=== PATIENT | female | born 1985 | race Caucasian/White ===

== ENCOUNTER 2019-08-05 18:41 | Emergency (ER) | payer MEDICAID ==
[~2019-08-05] VITALS: Ht 165.1 cm; Wt 108.9 kg
[2019-08-05 19:18] VITALS: BP_SYST 148
--- NOTE | 2019-08-05 19:22 | NUR ---
Patient triaged and placed in waiting room. VS checked and patient appears in no acute distress at this time. Accompanied by self , awaiting available bed, and MD notified of need for MSE.
--- NOTE | 2019-08-05 19:50 | NUR ---
Pt Brought in by self. Pt awake, alert, oriented x4. Pt states that she has had cough, congestion, and headache on and off for approx 4 months. Pt denies chest pain, shortness of breath, nausea, vomiting, diarrhea, any other medical complaint at this time. Pt resting in ED bed, comfortably. No acute distress. VSS
--- NOTE | 2019-08-05 19:50 | NUR ---
Patient to ER bed 3 to gown for evaluation. Side rails up.
--- NOTE | 2019-08-05 19:51 | NUR ---
ER CHAVA Lee at bedside examining patient.
[2019-08-05 20:07] VITALS: BP_SYST 148
--- NOTE | 2019-08-05 20:07 | NUR ---
Patient given written and verbal discharge instructions and verbalizes understanding. ER CORRECTION WARDEN discussed with patient the results and treatment provided. Patient in stable condition. ID armband removed. Rx of fluticasone, augmentin, motrin given. Patient educated on pain management and to follow up with PMD. Pain Scale 0/10. Opportunity for questions provided and answered. Medication side effect fact sheet provided.
== END 2019-08-05 20:07 | disposition home or self-care (01) ==
LOC: SED 18:41
DX: J32.9 Chronic sinusitis, unspecified (principal); R03.0 Elevated blood-pressure reading, without diagnosis of hypertension
CPT/HCPCS: 99283

== ENCOUNTER 2020-03-03 00:03 | Emergency (ER) | payer MEDICAID ==
[~2020-03-03] VITALS: Ht 165.1 cm; Wt 108.9 kg
[2020-03-03 00:05] VITALS: BP_SYST 156
--- NOTE | 2020-03-03 00:05 | NUR ---
Patient to ER bed 3 to gown for evaluation. Side rails up. Report given to GORDON.
--- NOTE | 2020-03-03 00:10 | NUR ---
DR. LANGFORD IN TRIAGE TO EVALUATE PT STATUS.
--- NOTE | 2020-03-03 00:15 | NUR ---
PT AAO AND AMBULATORY C/O ACUTE ONSET OF ANXIETY. PT REPORTS THAT A PANIC ATTACK WOKE HER FROM SLEEP. PT STATED THIS HAS HAPPENED IN THE PAST AND GIVEN MEDICATION TO CONTROL ANXIETY.
--- NOTE | 2020-03-03 00:17 | NUR ---
PORTABLE CXR DONE AT BEDSIDE
[2020-03-03] MEDS ORDERED: DIPHENHYDRAMINE INJ 50 MG/ML VIAL IM ONE (00:30)
[2020-03-03] MEDS ORDERED: DIPHENHYDRAMINE INJ 50 MG/ML VIAL ONE (00:42)
[2020-03-03 00:45] VITALS: BP_SYST 156
--- NOTE | 2020-03-03 00:50 | NUR ---
Patient given written and verbal discharge instructions and verbalizes understanding. DR. ANASTASIYA WHITE MD discussed with patient the results and treatment provided. Patient in stable condition. ID arm band removed. Rx of VISTARIL given. Patient educated on pain management and to follow up with PMD. Pain Scale 0/10. Opportunity for questions provided and answered. Medication side effect fact sheet provided.
== END 2020-03-03 00:45 | disposition home or self-care (01) ==
LOC: SED 00:03
DX: F41.0 Panic disorder [episodic paroxysmal anxiety] (principal)
CPT/HCPCS: 71045; 93005; 96372; 99283; J1200; J3410

== ENCOUNTER 2020-06-17 04:02 | Emergency (ER) | payer MEDICAID ==
[~2020-06-17] VITALS: Ht 167.6 cm; Wt 90.7 kg
[2020-06-17 04:10] VITALS: BP_SYST 110
--- NOTE | 2020-06-17 04:10 | NUR ---
Patient triaged and placed in waiting room. VSS and patient appears in no acute distress at this time. Accompanied by self, awaiting available bed, and MD notified of need for MSE.Report given to John GUZMAN
--- NOTE | 2020-06-17 04:12 | NUR ---
Pt BIBA to ED C/O R sided Chest Tightness radiating to her neck .pt states has Hx of anxiety, no other complaints noted. VSS no s/s of acute distress. Resting on chair in fast track room.
--- NOTE | 2020-06-17 04:30 | NUR ---
Note aly in EDM - 06/17/20 at 0530 by SDEDPR Agnieszka from lab called and sts there was no hall tube for lactic acid available.Dr Graham made aware.
--- NOTE | 2020-06-17 04:44 | NUR ---
ER at bedside examining patient.
--- NOTE | 2020-06-17 04:45 | NUR ---
Note undone in EDM - 06/17/20 at 0509 by MORIAH Pt BIB family to ED C/O R sided Chest Tightness pt states has Hx of anxiety, no other complaints noted. VSS no s/s of acute distress. Resting on chair in fast track room.
[2020-06-17] MEDS ORDERED: LevALBUTEROL HCL 1.25 MG/0.5 ML *CONC.* VIAL.NEB (XOPENEX CONC.) INH ONE (05:00)
--- NOTE | 2020-06-17 05:00 | NUR ---
Note aly in EDM - 06/17/20 at 0555 by SDEDPR Agnieszka from lab called and sts there was no hall tube for lactic acid available.Dr Graham made aware.
[2020-06-17] MEDS ORDERED: LORazepam 1 MG TABLET ONE (05:52)
[2020-06-17] MEDS: LORazepam 1 MG TABLET PO ONE (05:55)
--- NOTE | 2020-06-17 06:00 | NUR ---
Patient given written and verbal discharge instructions and verbalizes understanding. ER MD discussed with patient the results and treatment provided. Patient in stable condition. ID arm band removed. Rx of Albuterol inh given. Patient educated on pain management and to follow up with PMD. Pain Scale 0/10. Opportunity for questions provided and answered. Medication side effect fact sheet provided.
[2020-06-17 06:02] VITALS: BP_SYST 114
== END 2020-06-17 06:02 | disposition home or self-care (01) ==
LOC: SED 04:02
DX: R07.89 Other chest pain (principal); F41.9 Anxiety disorder, unspecified
CPT/HCPCS: 71045; 93005; 94640; 99283